=== PATIENT | male | born 1990 | race Caucasian/White ===

== ENCOUNTER 2024-05-02 08:09 | Emergency (ER) | payer OTHER ==
[~2024-05-02] VITALS: Ht 188 cm; Wt 68.5 kg
[2024-05-02 09:01] VITALS: BP 120/65; TEMP 98.4; O2SAT 99
== END 2024-05-02 09:02 | disposition home or self-care (01) ==
LOC: ER 08:11
DX: F19.10 Other psychoactive substance abuse, uncomplicated (principal); Z59.00 Homelessness unspecified
CPT/HCPCS: 82962-TC